=== PATIENT | female | born 1955 | race Caucasian/White ===

== ENCOUNTER 2018-04-19 16:23 | Inpatient (IN) ==
[2018-04-19] MEDS ORDERED: Haloperidol Inj 5 MG/ML Ampul IM ONE (17:49)
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
[2018-04-19] MEDS ORDERED: Sod Chloride 0.9% Inj 1,000 ML IV.SIG SCH (18:00)
[2018-04-19 18:57] LABS: Baso % (Auto) 0.7 % (0.0-2.0); Eos # (Auto) 0.1 th/mm3 (0.0-0.4); Eos % (Auto) 1.5 % (0.0-4.0); Hematocrit 39.6 % (35.0-46.0); Hemoglobin 13.9 gm/dL (11.6-15.3); Lymph # (Auto) 2.1 th/mm3 (1.0-4.8); Lymph % (Auto) 30.1 % (9.0-44.0); Mean Corpuscular HGB Conc 35.1 % (32.0-36.0); Mean Corpuscular Hemoglobin 31.5 pg (27.0-34.0); Mean Corpuscular Volume 89.8 fL (80.0-100.0); Mean Platelet Volume 7.8 fL (7.0-11.0); Mono # (Auto) 0.6 th/mm3 (0.0-0.9); Mono % (Auto) 8.5 % (0.0-8.0); Neut # (Auto) 4.2 th/mm3 (1.8-7.7); Neut % (Auto) 59.2 % (16.0-70.0); Platelet Count 236 th/mm3 (150-450); Red Blood Count 4.41 mil/mm3 (4.00-5.30); Red Cell Distribution Width 13.7 % (11.6-17.2); White Blood Count 7.1 th/mm3 (4.0-11.0)
[2018-04-19 19:40] LABS: Alanine Aminotransferase 24 U/L (10-53); Albumin 3.8 g/dL (3.4-5.0); Alkaline Phosphatase 87 U/L (45-117); Anion Gap 9 meq/L (5-15); Aspartate Aminotransferase 20 U/L (15-37); Blood Urea Nitrogen 18 mg/dL (7-18); Calcium 8.8 mg/dL (8.5-10.1); Carbon Dioxide 25.5 meq/L (21.0-32.0); Chloride 107 meq/L (98-107); Glomerular Filtration Rate 69 mL/min (>89); Glucose,Random 83 mg/dL (74-106); Magnesium 2.2 mg/dL (1.5-2.5); Potassium 3.3 meq/L (3.5-5.1); Sodium 141 meq/L (136-145); Total Protein 7.2 g/dL (6.4-8.2)
[2018-04-20 11:01] LABS: Amphetamine Screen,Urine Neg (Neg); Barbiturate Screen,Urine Neg (Neg); Cannabinoid Screen,Urine Neg (Neg); Cocaine Screen,Urine Neg (Neg)
[2018-04-20 11:02] LABS: Opiate Screen,Urine Neg (Neg)
[2018-04-20] MEDS ORDERED: Aluminum/Magnesium/Simethacone Susp 30 ML UDC PO PRN (22:49)
[2018-04-21 07:46] LABS: Calcium 8.8 mg/dL (8.5-10.1); Carbon Dioxide 28.7 meq/L (21.0-32.0); Potassium 3.5 meq/L (3.5-5.1)
[2018-04-21 07:50] LABS: Chol/HDL Ratio 2.32 Ratio; HDL Cholesterol 61.2 mg/dL (40.0-60.0)
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
[2018-04-21] MEDS ORDERED: Melatonin 5 MG Tablet PO PRN (15:03)
[2018-04-21] MEDS: Acetaminophen 325 MG Tablet PO PRN (19:41)
[2018-04-21 20:52] LABS: Hemoglobin A1c 5.2 % (4.3-6.0)
[2018-04-21 22:09] VITALS: RESP 16
[2018-04-22] MEDS: Acetaminophen 325 MG Tablet PO PRN ×4 (04:37→23:31)
[2018-04-22] MEDS ORDERED: Sertraline 50 MG Tablet PO SCH (09:00)
[2018-04-22 10:18] LABS: Folate 14.5 ng/mL (3.1-17.5); Free T4 (Free Thyroxine) 0.94 ng/dL (0.76-1.46)
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
--- NOTE | 2018-04-22 14:53 | P.PNPSY ---
Subjective Chief Complaint: Angel act Remarks: This is a request for second opinion. Admission note was reviewed and I agree with the history. Patient was seen and case was discussed with nursing. Patient remains oppositional and vague and somewhat evasive during the interview. She continues to claim she only took 2 Xanax pills of an unknown dose in an unknown amount of alcohol. Patient says she is also regularly on Adderall. She is blunted and minimally interactive. She does admit to a history of depression. Today, she denies suicidal or homicidal ideation intent or plan. Mental Status Examination Appearance: Appropriate Consciousness: Alert Orientation: Person, Place (At least) Motor Activity: Other (No abnormal motor movements noted) Speech: Unremarkable Language: Adequate Fund of Knowledge: Adequate Attention and Concentration: Adequate Memory: Unremarkable (Grossly intact on clinical exam) Mood: Other (Denies issues with mood) Affect: Other (Again mildly dysphoric) Thought Process & Associations: Intact Thought Content: Preoccupations Hallucination Type: None Delusion Type: None Suicidal Ideation: No Suicidal Plan: No Suicidal Intention: No Homicidal Ideation: No Homicidal Plan: No Homicidal Intention: No Assessment and Plan - Assessment (1) Adjustment disorder with mixed disturbance of emotions and conduct Code(s): F43.25 - Adjustment disorder with mixed disturbance of emotions and conduct Status: Acute - Plan Plan: I agree with the first opinion to continue petition. Criteria include suicide attempt Justification for Continued Inpatient Stay: Patient would decompensate in a less restrictive setting Request Healthcare Surrogate/Guardian Advocate?: No
--- NOTE | 2018-04-22 15:15 | CT ---
EXAM DATE: 04/22/2018 3:11 PM EDT AGE/SEX: 63 years / Female INDICATIONS: Altered mental status. CLINICAL DATA: This is the patient's initial encounter. Patient reports that signs and symptoms have been present for 1 day and indicates a pain score of 0/10. MEDICAL/SURGICAL HISTORY: . mood disorder Tubal ligation. RADIATION DOSE: 36.84 CTDI (mGy) COMPARISON: No prior exams available for comparison. TECHNIQUE: CT of the head without contrast. Using automated exposure control and adjustment of the mA and/or kV according to patient size, radiation dose was kept as low as reasonably achievable to ob tain optimal diagnostic quality images. DICOM format image data is available electronically for revi ew and comparison. FINDINGS: Cerebrum: The ventricles are normal for age. No evidence of midline shift, mass lesion, hemorrhage or acute infarction. No extraaxial fluid collections are seen. Posterior Fossa: The cerebellum and brainstem are intact. The 4th ventricle is midline. The cerebe llopontine angle is unremarkable. Extracranial: The visualized portion of the orbits is intact. Skull: The calvaria is intact. No evidence of skull fracture. CONCLUSION: Negative exam. . Electronically signed by: Arpit Ivan MD 04/22/2018 3:14 PM EDT
[2018-04-23 04:50] VITALS: BP 115/59; PULSE 70; TEMP 98; O2SAT 96
[2018-04-23] MEDS: Acetaminophen 325 MG Tablet PO PRN (06:44)
[2018-04-23] MEDS ORDERED: Sertraline 100 MG Tablet PO SCH (09:00)
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
--- NOTE | 2018-04-23 12:22 | P.NPEVAL ---
Disclaimer Patient was given an explanation of the nature and purpose of the evaluation. Patient agreed to proceed with the evaluation and treatment plan. History - Reason for Referral The patient is a 63 year old right handed woman who was admitted to the psychiatry unit of [facility] on 04/20/2018 under Angel Act for mental status changes related to benzodiazepine intoxication. She reported a history of ADHD and depression with prior treatments of Prozac and Adderall. She is originally from [place], and had moved to several places in the [facility] prior to moving to the [facility]. 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 She is and has children who are adults. She is referred for baseline neuropsychological evaluation to assess cognitive, behavioral and emotional aspects of the injury and provide treatment recommendations. 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 Living Arrangement Prior to Admission: Lives With Spouse/Significant Other Hand Dominance: Right PMFSH - History History Provided By: Patient, Medical Record - Tobacco History Second Hand Smoke Exposure: No Tobacco Use In Past 30 Days: No Smoking Status: Never smoker - Alcohol History How Often Do You Have a Drink Containing Alcohol: Never - Substance Use History Substance History: No History of Abuse - Immunization History Tetanus Immunization: Unable to Assess Medications Active Medications Acetaminophen (Tylenol) 650 mg PO Q4H PRN PRN Reason: PAIN 1-5 OR TEMP 101 Last Admin: 04/23/18 06:44 Dose: 650 mg Al Hydrox/Mg Hydrox/Simethicone (Mag-Al Plus Susp Liq) 30 ml PO Q6H PRN PRN Reason: DYSPEPSIA Al Hydroxide/Mg Hydroxide (Milk Of Magnesia Liq) 30 ml PO Q24H PRN PRN Reason: CONSTIPATION Atorvastatin Calcium (Lipitor) 20 mg PO DAILY BELLA Last Admin: 04/23/18 09:26 Dose: 20 mg Hydroxyzine HCl (Atarax) 25 mg PO Q6H PRN PRN Reason: ANXIETY Melatonin (Melatonin) 5 mg PO HS PRN PRN Reason: INSOMNIA Last Admin: 04/22/18 22:31 Dose: 5 mg Sertraline HCl (Zoloft) 100 mg PO DAILY BELLA Last Admin: 04/23/18 09:27 Dose: 100 mg Mental Status Assessment - Mental Status Orientation: oriented to: Self, Place, Time, Situation Mental Status: WFL: Thought processing, Language/interactions, Attention, Learning/memory, Problem-solving, Visuospatial/construction, Self-regulation, Other Absent: Hallucinations, Delusions Adjustment/Coping Assessment - Adjustment/Coping Adjustment/Coping: None: Depression, Anxiety, Awareness, Insight - Observation In terms of emotional functioning, the patient demonstrated normal adjustment. This patient demonstrated no signs of agitation, impulsivity or disinhibition, nor was there remarkable evidence of a formal thought disorder or psychosis. There was no evidence of depression or anxiety. The Geriatric Depression Scale- Short Form was administered given the ease to which it is administered to persons with known neurological pathology, and the patient endorsed 0 of 15 symptoms, which falls within the non depressed range. Thought content was free from suicidal, homicidal or paranoid ideation, and thought processes were logical and goal-directed. The patients mood was euthymic, and her affect was stable and appropriate. The patient appears to possess adequate insight and awareness into their situation and within the limits of this brief evaluation, adequate judgment. - Goals/Team Members LTG Status: Deferred STG Status: Deferred Team Members: Neuropsychologist, Physician Effort Effort: Average Cognition Assessment - Attention/Processing Speed Rating: WFL: Attention/processing, Language, Immediate & delayed memory, Visual perception, Spatial judgment, Executive, Awareness - insight adjustment Observation: The patient was alert and oriented to person, place, time and circumstances surrounding the recent hospitalization. The Mini-Mental State Exam was administered, and the patient obtained a score of 29 out of 30 points, which falls in the normal range. However, on further evaluation, specific deficits were identified. In terms of attention skills, the patient exhibited normal abilities. The patient was able to remain on task and remember basic and complex verbal instructions. The patient was able to spell the word WORLD backwards without difficulty. In terms of memory functioning, the patient exhibited normal abilities. The patients initial registration of verbal information was normal, and the patient was able to improve their memory with repetition. After a period of delay, the patient was able to recall this information from memory. More specifically, on the Luria Memory Words Test- Short Form, the patients trial one performance was 4 of 7 words, trial five performance was 7 of 7 words, the patients Total Learning score was 31 (above cut-off), and the patients Delayed recall score was 7 of 7 words (above cut-off ). The patients ability to recall verbal information in a paragraph format was considered normal, as she was able to recall 75% of such information after a brief delay. In terms of speech and language skills, the patient demonstrated normal abilities. The patients initiated spontaneous conversation throughout the assessment. Speech was characterized by adequate prosody, grammar, articulation, volume and rate. No remarkable dysnomic or paraphasic errors were noted either during conversational speech or on confrontation naming tasks. Reading recognition skills were adequate, as were writing skills. Her reading abilities fell at a standard score of 106 (percentile rank of 66) on the WRAT-4 Reading subtest. The patients comprehension for basic one- and two- stage commands was normal. In terms of problem-solving skills, the patient exhibited normal abilities. The patients ability to understand abstraction reasoning was normal, as reflected in her ability to abstract essential shared characteristics of objects and concepts. Mathematical reasoning skills were also normal. Speed of information processing, as evaluated by both the Letter and Category Fluency Tests was normal. Finally, there was no evidence of ideomotor apraxia or constructional difficulties during this brief evaluation. Summary/Diagnosis - Summary/Impressions Summary: 63 year old woman admitted to psychiatry unit under Angel Act for benzodiazepine intoxication. Evaluation results indicate no neuropsychological deficit. Recommendations Recommendations: This patient demonstrates no neurocognitive defect at this time. She retains decision making capacity. She should consider follow-up with a psychiatrist on her discharge.
== END 2018-04-23 13:05 | disposition home or self-care (01) ==
LOC: NEDAMB 16:23 → NEDA 04-20 21:04 → H270 04-20 21:42 → H260 04-21 16:00
PROVIDERS: ADMIT Psychiatry & Neurology Psychiatry; ATTEND Psychiatry & Neurology Psychiatry